=== PATIENT | female | born 1975 | race Asian ===

== ENCOUNTER 2018-04-20 14:55 | Emergency (ER) | payer OTHER ==
[~2018-04-20] VITALS: Ht 165.1 cm; Wt 128.4 kg
[2018-04-20 18:40] VITALS: BP 145/108; TEMP 97.9
== END 2018-04-20 18:48 | disposition home or self-care (01) ==
LOC: ED 14:55
DX: T74.21XA Adult sexual abuse, confirmed, initial encounter (principal); S10.93XA Contusion of unspecified part of neck, initial encounter; S40.022A Contusion of left upper arm, initial encounter; S40.021A Contusion of right upper arm, initial encounter; S40.811A Abrasion of right upper arm, initial encounter
CPT/HCPCS: 99282